=== PATIENT | female | born 1950 | race Caucasian/White ===

== ENCOUNTER 2016-10-26 08:15 | Emergency (ER) | payer MEDICARE ==
[2016-10-26] MEDS: IOPAMIDOL 370 (76%) 100 ML VIAL IV ONE (08:16)
[2016-10-26 09:06] LABS: ABSOLUTE NEUTROPHIL COUNT 10.4 K/mm3 (1.8-7.7); BASO % 0.3 % (0.2-1.0); EOS # 0.1 (0.0-0.5); EOS % 0.7 % (0.9-2.9); HEMATOCRIT 38.3 % (37.0-47.0); HEMOGLOBIN 12.8 gm/l (12.0-16.0); IMM NEUT # 0.1 K/mm3 (0-0.2); IMM NEUT% 0.4 % (0-1); LYMPH # 2.2 (1.0-4.8); LYMPH % 16.4 % (15-45); MEAN CELL VOLUME 90.1 fl (81.0-99.0); MEAN CORPUSCULAR HEMOGLOBIN 30.1 pg (27.0-31.0); MEAN CORPUSCULAR HGB CONC 33.4 g/dl (33.0-37.0); MEAN PLATELET VOLUME 9.2 fl (7.4-10.4); MONO # 0.8 (0.0-0.8); MONO % 6.1 % (4-12); NEUT % 76.1 % (43-75); PLATELET COUNT 237 K/mm3 (130-400); RED CELL DISTRIBUTION WIDTH 13.1 % (11.5-14.5)
[2016-10-26 09:20] LABS: ALB/GLOB RATIO 1.6 (>1.0); ALBUMIN 3.8 gm/dL (3.5-5.7); CALCIUM 9.2 mg/dL (8.6-10.3)
[2016-10-26 09:27] LABS: TROPONIN I < 0.01 ng/ml (0.0-0.06)
[2016-10-26 09:30] LABS: CKMB ISOENZYME 3.5 ng/ml (0.6-6.3)
--- NOTE | 2016-10-26 09:50 | RAD ---
Exam: Two-view chest COMPARISON: 07/22/2012 INDICATION: Chest pain since 6:00 am. FINDINGS: PA and lateral views of the chest were obtained. Cardiac silhouette is within normal limits and stable. Lungs are normally inflated. There is no pulmonary edema, focal airspace disease or pleural effusion. Bridging osteophytes are again appreciated within the thoracic spine. IMPRESSION: No acute pulmonary process.
--- NOTE | 2016-10-26 11:04 | CT ---
Exam: CT angiogram chest with contrast Comparison: Chest radiograph 10/26/2016 History: Pleuritic chest pain, elevated d-dimer. Technique: CT angiogram of the chest was obtained following the administration of 80 mL Isovue-370 intravenous contrast using a CT angiogram pulmonary embolism protocol which was supplemented with MIP reconstructions from the CT workstation. Findings: There is no evidence of acute pulmonary thromboembolic disease to the proximal subsegmental level. The aorta is overall normal in caliber and contour. There is minor dependent atelectasis within the lung bases. Pulmonary parenchyma is otherwise clear. There is no significant mediastinal or hilar lymphadenopathy by size criteria. There is no pleural or pericardial effusion. Calcified nodule is noted within the left lower lobe. Limited evaluation of the upper abdomen demonstrates hepatic steatosis, cholecystectomy clips and a partially imaged low-density lesion within the right kidney which is statistically likely to reflect a cyst. Bridging osteophytes are seen within the thoracic spine. IMPRESSION: No evidence of acute pulmonary thromboembolic disease, or other acute findings identified to explain patient's symptoms. Report was uploaded to the EMR at 1100 hours 10/26/2016.
== END 2016-10-26 13:06 | disposition home or self-care (01) ==
LOC: ED 08:15
DX: R07.9 Chest pain, unspecified (principal); R06.00 Dyspnea, unspecified; R06.02 Shortness of breath; E11.9 Type 2 diabetes mellitus without complications; Z79.84 Long term (current) use of oral hypoglycemic drugs
CPT/HCPCS: 83690; 85379; 85025; 82553; 80053; 84484 ×2; 71020; 71275; 99284 ×2; 36415; 93005; Q9967